=== PATIENT | female | born 1980 | race American Indian/Alaskan Native ===

== ENCOUNTER 2016-08-02 14:23 | Outpatient (CLI) | payer MEDICAID ==
--- NOTE | 2016-08-02 14:58 | XRay Report ---
Chest 2 views: Compared to 10/22/13. History: Pleuritic chest pain. Findings: Normal cardiomediastinal silhouette. Trachea is midline. Circumscribed new nodule measuring 1.4 cm in diameter noted at the superior aspect of the left hilum. Normal CP angles. Impression: New nodule superior aspect of left hilum .
== END 2016-08-02 14:24 | disposition home or self-care (01) ==
LOC: SPVIMAG 14:23
PROVIDERS: ATTEND Internal Medicine Hematology & Oncology
DX: R07.89 Other chest pain (principal)
CPT/HCPCS: 71020

== ENCOUNTER 2016-11-04 09:21 | Outpatient (CLI) | payer MEDICAID ==
--- NOTE | 2016-11-05 07:51 | Vascular Lab Report ---
LEFT UPPER EXTREMITY VENOUS DUPLEX: REASON FOR EXAM: Left arm pain COMMENTS ON THE LEFT: All arm veins visualized are freely compressible without evidence of internal echogenicity. The subclavian and internal jugular veins are free of thrombus. Flow is spontaneous and phasic throughout. Superficial thrombophlebitis noted in the basilic vein COMMENTS ON THE RIGHT: The subclavian and internal jugular veins are free of thrombus. IMPRESSION: No evidence of acute or chronic deep venous thrombosis in the left upper extremity. Superficial thrombophlebitis in the left upper extremity
== END 2016-11-04 09:22 | disposition home or self-care (01) ==
LOC: VAS 09:21
PROVIDERS: ATTEND Internal Medicine Hematology & Oncology
DX: I80.8 Phlebitis and thrombophlebitis of other sites (principal); D05.11 Intraductal carcinoma in situ of right breast

== ENCOUNTER 2017-01-14 10:24 | Outpatient (CLI) | payer MEDICAID ==
--- NOTE | 2017-01-14 15:52 | Cat Scan Report ---
CT CHEST, ABDOMEN AND PELVIS WITH CONTRAST: 01/14/17 10:24:00 CLINICAL: Breast cancer restaging. COMPARISON: 07/08/16 CT/PET TECHNIQUE: Volumetric acquisition and 1.25 millimeter scan reconstructions after the uneventful intravenous injection of 100 cc of Omnipaque 300. Consent was obtained prior to the administration of the contrast. Oral contrast was also given. FINDINGS: Chest: The previously described left upper lobe lung mass has increased in size and now measures 2.7 x 2.2 cm compared to 2.5 x 1.5 cm. No other lung nodule or mass. Left hilar lymphadenopathy with lymph nodes measuring 1.3 x 1.1 cm and 1.3 x 1.1 cm. No mediastinal lymphadenopathy. No pleural effusion. Normal aorta, heart and pulmonary arteries. Normal esophagus and trachea. No axillary or supraclavicular lymphadenopathy. Status post bilateral mastectomy with intact implants. No chest wall or breast mass. Abdomen: Normal liver, gallbladder and bile ducts. Normal stomach, duodenum, pancreas and spleen. Normal kidneys with nondilated renal collecting systems and ureters. Normal adrenal glands. Normal aorta and inferior vena cava. No lymphadenopathy.No ascites.The small bowel is normal. Normal ascending, transverse and descending colon. An appendix is not identified. Pelvis: Normal urinary bladder and rectum.Normal retroflexed uterus. Ovaries are not identified. Bone windows demonstrate no suspicious bone lesion. IMPRESSION:1. Left upper lobe pulmonary metastasis with a slightly larger mass. 2. Left hilar evelyne metastasis. 3. No evidence of hepatic or skeletal metastasis.
== END 2017-01-14 10:25 | disposition home or self-care (01) ==
LOC: SPVIMAG 10:24
PROVIDERS: ATTEND Internal Medicine Hematology & Oncology
DX: C78.02 Secondary malignant neoplasm of left lung (principal); C50.311 Malignant neoplasm of lower-inner quadrant of right female breast; R59.1 Generalized enlarged lymph nodes; Z90.11 Acquired absence of right breast and nipple; Z90.12 Acquired absence of left breast and nipple; Z98.82 Breast implant status
CPT/HCPCS: 71260; 74177; Q9967

== ENCOUNTER 2017-01-26 09:06 | Outpatient (CLI) | payer MEDICAID ==
[2017-01-26] MEDS ORDERED: FLUSH HEPARIN IV ONE (11:19)
--- NOTE | 2017-01-26 14:51 | Nuclear Medicine Report ---
BONE SCAN: History: Right breast cancer. Correlation is made with the CT chest, abdomen and pelvis performed 01/14/17. There is mild increased uptake throughout the left femoral head. There are minor degenerative changes at the left hip on the recent CT but no suspicious bone lesion is appreciated. This may represent early osteonecrosis or transient osteoporosis of the left femoral head. There is normal bony uptake in the remaining osseous structures. No evidence for metastatic disease or fracture. No significant degenerative changes. IMPRESSION: There is increased uptake throughout the left femoral head which is of uncertain etiology. No suspicious bone lesion is identified on CT performed 12 days ago. This may represent early osteonecrosis or transient osteoporosis of the left femoral head. Low suspicion for metastatic disease. Consider surveillance. MRI with and without contrast may provide additional information if needed.
== END 2017-01-26 09:07 | disposition home or self-care (01) ==
LOC: NM 09:06
PROVIDERS: ATTEND Internal Medicine Hematology & Oncology
DX: C50.311 Malignant neoplasm of lower-inner quadrant of right female breast (principal)
CPT/HCPCS: 78306; A9503

== ENCOUNTER 2017-03-02 12:07 | Outpatient (CLI) | payer MEDICAID ==
--- NOTE | 2017-03-02 16:24 | XRay Report ---
LUMBAR SPINE RADIOGRAPHS: INDICATION: Abnormal scan. COMPARISON: January 2017 imaging. FINDINGS: AP and lateral lumbar spine radiographs demonstrate preserved vertebral body stature, alignment and disc heights. Nonobstructive bowel gas pattern. Normal bilateral SI joints. Clear visualized lung bases. A central catheter tip about the cavoatrial junction, few small pelvic phleboliths and numerous mesh hernia repair ricardo anteriorly about L5 level incidentally noted. CONCLUSION: No acute lumbar radiographic abnormality with few incidental findings, as above. Thank you for the opportunity to participate in this patient's care.
--- NOTE | 2017-03-02 16:26 | XRay Report ---
THORACIC SPINE RADIOGRAPHS INDICATION: Abnormal scan. COMPARISON: None similar. FINDINGS: AP and lateral views demonstrate normal thoracic vertebral body stature, alignment and disc heights. Normal imaged heart size. Bilateral breast implants haziness noted and known left upper lung mass, now approximately 3 cm. Right chest port tip about the cavoatrial junction also seen. CONCLUSION: No acute thoracic spine radiographic abnormality with other findings, as above. Thank you for the opportunity to participate in this patient's care.
--- NOTE | 2017-03-03 08:31 | XRay Report ---
XRAY BILATERAL HIP THREE VIEWS EACH: 03/02/17 12:07:00 CLINICAL: Breast cancer and abnormal left hip on bone scan. COMPARISON: 01/26/17 FINDINGS: Right: The hip, knee and entire femur are included on exam. No fracture or dislocation. No bone lesion. Normal femoral head contour and density. Normal soft tissues. Left: The hip, knee and entire femur are included on exam. Several tiny lytic lesions of the femoral neck and at least one tiny lytic lesion of the femoral head. At least five tiny lesions or clustered in the femoral neck. No fracture or dislocation. Normal femoral head contour and overall density.Normal soft tissues. IMPRESSION: Lytic metastases of the left femoral head and neck. No fracture. Normal right hip.
--- NOTE | 2017-03-03 08:38 | XRay Report ---
XRAY BILATERAL HIPS AND AP PELVIS THREE VIEWS: 03/02/17 CLINICAL: Breast cancer and abnormal left hip on bone scan. FINDINGS: Right: No fracture or dislocation. No bone lesion. Normal soft tissues. Left: Lucent lesions of the femoral neck are consistent with lytic metastases and correlate with recent bone scan findings. No fracture or dislocation. Normal soft tissues. IMPRESSION: Lytic metastases involving the left femoral neck.
--- NOTE | 2017-03-04 15:43 | XRay Report ---
XRAY BILATERAL RIBS THREE VIEWS: 03/02/17 12:07:00 CLINICAL: Breast cancer with known metastasis. FINDINGS: No rib fracture or rib lesion. The previously described left upper lobe pulmonary metastasis is larger compared to a 08/02/16 chest x-ray. Right Diwaca-e-Tcbo tip is in the right atrium. Normal heart and pulmonary vessels. No pleural effusion. IMPRESSION: No rib lesion identified. Left upper lobe pulmonary metastasis.
== END 2017-03-02 12:08 | disposition home or self-care (01) ==
LOC: SPVIMAG 12:07
PROVIDERS: ATTEND Internal Medicine Hematology & Oncology
DX: C78.02 Secondary malignant neoplasm of left lung (principal); C79.51 Secondary malignant neoplasm of bone; C50.311 Malignant neoplasm of lower-inner quadrant of right female breast; I87.8 Other specified disorders of veins; R92.8 Other abnormal and inconclusive findings on diagnostic imaging of breast; Z98.82 Breast implant status
CPT/HCPCS: 71110; 72070; 72100; 73521

== ENCOUNTER 2017-05-05 08:19 | Outpatient (CLI) | payer MEDICAID ==
--- NOTE | 2017-05-06 08:37 | PET Report ---
PET SB TO MT SUBSEQUENT: HISTORY: Restaging of right breast cancer. TECHNIQUE: 13.8 millicuries F-18 FDG was administered intravenously. Noncontrast CT images and PET images were obtained from the skull base to the proximal thighs. Fused images were reviewed on a workstation. The patient's blood glucose level measured 89. COMPARISON: 07/08/16. FINDINGS: BRAIN: physiologic FDG uptake in the imaged brain. NECK: physiologic FDG uptake. CHEST WALL: Bilateral breast replacements are intact. No recurrent chest wall mass or extrathoracic adenopathy. THORACIC LYMPH NODES: Uptake in a mildly enlarged left hilar lymph node has decreased from an SUV max of 4.9 to 6.0. No new mediastinal uptake is appreciated. LUNGS: The left upper lobe mass has increased from 2.2 x 1.5 cm to 3.3 x 2.5 cm. Max SUV has increased from 4.9 to 6.0. There are several new tiny lung nodules measuring up to 5 mm which appear to be new since the previous exam. Approximately 5 are identified in the right lung and 2 in the left lung. Uptake values for these nodules measure less than 1.0 which is probably due to their small size. PLEURA/PERICARDIUM: physiologic FDG uptake. HEPATOBILIARY: physiologic FDG uptake. Mean liver SUV measures 2.7 as compared to 2.3 on the previous exam. PANCREAS: physiologic FDG uptake. SPLEEN: physiologic FDG uptake. ADRENAL GLANDS: physiologic FDG uptake. KIDNEYS/RENAL COLLECTING SYSTEMS: physiologic FDG uptake. BOWEL/MESENTERY: physiologic FDG uptake. PELVIC VISCERA: physiologic FDG uptake. ABDOMINAL/PELVIC LYMPH NODES: physiologic FDG uptake. MUSCULOSKELETAL: There are several new lytic bony lesions demonstrating hypermetabolic activity. A proximal left humeral lesion demonstrates an SUV of 2.6. A T1 lesion demonstrates an SUV of 3.5. A T2 lesion demonstrates an SUV of 3.5. A T12 lesion demonstrates an SUV of 3.4. An L1 lesion demonstrates an SUV of 3.7. An L3 lesion demonstrates an SUV of 4.0. A left medial clavicle lesion demonstrates an SUV of 3.9. Left lateral ninth rib demonstrates an SUV of 2.9. There are 2 left iliac bone lesions with SUV measuring up to up to 3.8. A right anterior iliac lesion measures 4.1. A right ischial lesion demonstrates an SUV of 5.0. A right femoral head lesion demonstrates an SUV of 4.1. A midline sacral lesion demonstrates an SUV of 3.2 IMPRESSION: Progression of disease is demonstrated since 07/08/16. A left upper lobe mass has increased in size and metabolic activity as described. There are multiple new tiny pulmonary nodules as described. Left hilar lymph node has little. There are numerous new lytic and hypermetabolic bony lesions as outlined above.
== END 2017-05-05 08:20 | disposition home or self-care (01) ==
LOC: PET 08:19
PROVIDERS: ATTEND Internal Medicine Hematology & Oncology
DX: C50.311 Malignant neoplasm of lower-inner quadrant of right female breast (principal); R91.8 Other nonspecific abnormal finding of lung field; R59.9 Enlarged lymph nodes, unspecified; M89.9 Disorder of bone, unspecified; Z98.82 Breast implant status; Z79.899 Other long term (current) drug therapy
CPT/HCPCS: 78815; 82962; A9552

== ENCOUNTER 2017-08-02 14:51 | Outpatient (CLI) | payer MEDICAID ==
--- NOTE | 2017-08-02 15:48 | XRay Report ---
Chest 2 views. History: Breast cancer with chest mass. Findings: Comparison is made to the previous CT of the chest performed on January 14, 2017. A soft tissue mass in the left upper lobe has decreased in size now measuring approximately 1.6 cm in maximum dimension as opposed to 2.6 cm in January of 2017. No new pulmonary nodules or masses are seen. Lungs are free of acute infiltrates. No pleural fluid is seen. The heart size is normal. A right [id number]-f-Swtg catheter terminates at the cavoatrial junction. No suspicious bony lesions are identified. Impression: Interval decrease in size of metastatic lesion in the left upper lobe.
== END 2017-08-02 14:52 | disposition home or self-care (01) ==
LOC: SPVIMAG 14:51
PROVIDERS: ATTEND Internal Medicine Hematology & Oncology
DX: C78.02 Secondary malignant neoplasm of left lung (principal); C50.311 Malignant neoplasm of lower-inner quadrant of right female breast; E86.0 Dehydration; R22.2 Localized swelling, mass and lump, trunk
CPT/HCPCS: 71046

== ENCOUNTER 2017-09-01 08:39 | Outpatient (CLI) | payer MEDICAID ==
--- NOTE | 2017-09-01 13:09 | PET Report ---
PET/CT:09/01/17 08:39:00 CLINICAL: Breast cancer restaging. RADIOPHARMACEUTICAL: 14.2mCi F18-FDG. COMPARISON: 05/05/17 PET/CT TECHNIQUE- Following intravenous injection of F-18 FDG and an approximately 60 minute uptake period, CT and PET images from the mid skull to the upper thighs were acquired with the patient in the fasted state. No contrast was administered. The CT protocol used for this PET CT study is designed for attenuation correction and anatomic localization of PET abnormalities. This vegetable washing machine operator CT is not desired to produce and cannot replace, [id number]-art diagnostic CT scans with specific imaging protocols for different body parts and indications. Plasma glucose at the time of this test: 98g/dl. The standardized uptake values (SUV) are normalized to patient body weight and indicate the highest activity concentration (SUV max) in a given disease site. FINDINGS: Brain--Physiologic FDG uptake in the visualized regions of the brain. Neck--Physiologic FDG uptake . Chest--Physiologic FDG uptake in mediastinal blood pool and myocardium. Lungs--The irregular FDG avid left upper lobe lung mass measures 2.5 x 1.7 cm with SUV 3.0 compared to 3.3 x 2.5 cm and SUV 6.0 on the last exam. A surrounding halo around the mass has resolved. Previously described bilateral subcentimeter lung nodules have resolved. Pleura/pericardium--No abnormal uptake. Thoracic nodes--No abnormal uptake. FDG uptake in the left hilum has resolved. Hepatobiliary--No abnormal uptake. Liver background SUV mean, as a reference for comparing FDG studies, is 2.4 compared to 2.4 on the last exam. No liver mass. Spleen--No abnormal uptake. Pancreas--No abnormal uptake. Adrenal Glands--No abnormal uptake. Kidneys/Ureters/Bladder--No abnormal uptake. Abdominopelvic Nodes--No abnormal uptake. Bowel/Peritoneum/Mesentery--No abnormal uptake. Pelvic organs--No abnormal uptake. Bones/Soft Tissues--The abnormal FDG uptake in spine lesions has resolved. The L2 vertebral body has become sclerotic. FDG avid lytic left iliac and ischial lesions have not changed significantly in character but SUV is reduced to 2.0 compared to 3.8. Other findings: Intact bilateral breast implants status post bilateral mastectomy. No chest wall mass. IMPRESSION- Partial response to therapy with a smaller left upper lobe lung mass with less FDG uptake, resolution of all the distal bilateral lung nodules and a positive treatment response in skeletal lesions. No new lesions.
== END 2017-09-01 08:40 | disposition home or self-care (01) ==
LOC: PET 08:39
PROVIDERS: ATTEND Internal Medicine Hematology & Oncology
DX: C50.311 Malignant neoplasm of lower-inner quadrant of right female breast (principal); E86.0 Dehydration; R91.8 Other nonspecific abnormal finding of lung field; Z98.82 Breast implant status; Z90.13 Acquired absence of bilateral breasts and nipples
CPT/HCPCS: 78815; 82962; A9552